=== PATIENT | male | born 1955 | race Caucasian/White ===

== ENCOUNTER 2016-07-25 13:33 | Day surgery (SDC) | payer OTHER ==
[~2016-07-25] VITALS: Ht 172.7 cm; Wt 78.1 kg
[~2016-07-25 13:33] MED LIST: ONDANSETRON HCL 4 MG/2 ML VIAL IV PUSH ONE; PROPOFOL 200 MG/20 ML AMP IV ONE
[2016-07-25] MEDS ORDERED: BUPIVACAINE HCL PF 0.5% 30 ML VIAL ONE (13:41)
[2016-07-25] MEDS ORDERED: NEOMYCIN/POLYMYXIN/BACITRACIN OINT 15 GM TUBE ONE (13:42)
[2016-07-25] MEDS ORDERED: GENTAMICIN SULFATE 80 MG/2 ML VIAL ONE (13:42)
[2016-07-25] MEDS ORDERED: EXPAREL PERI-ARTICULAR INJECTION (TOTAL VOL. 120 ML) P-ARTICULR SCH ×2 (14:00)
[2016-07-25] MEDS ORDERED: CHLORHEXIDINE GLUCONATE 4% SOLN 120 ML BTL TOP SCH (14:00)
[2016-07-25] MEDS ORDERED: POVIDONE IODINE 7.5% SCRUB 118 ML BOTTLE TOP SCH (14:00)
[2016-07-25] MEDS ORDERED: SODIUM CHLORID 0.9% 500 ML IV SCH (14:00)
[2016-07-25] MEDS ORDERED: INSULIN HUMAN REGULAR 1,000 UNITS/10 ML VIAL SQ PRN (14:00)
[2016-07-25] MEDS ORDERED: METOPROLOL TARTRATE 25 MG TAB PO PRN (14:00)
[2016-07-25] MEDS ORDERED: LACTATED RINGER'S 1000 ML IV SCH (14:00)
[2016-07-25] MEDS ORDERED: ceFAZolin 2 GM PREMIX 50 ML IV SCH (14:00)
[2016-07-25] MEDS ORDERED: PERC10TA27 PO (14:02)
[2016-07-25 14:14] VITALS: BP 142/76; PULSE 79; RESP 18; TEMP 98.5; O2SAT 97
[2016-07-25] MEDS ORDERED: MIDAZOLAM HCL 2 MG/2 ML VIAL ONE (15:42)
[2016-07-25] MEDS ORDERED: fentaNYL CITRATE 250 MCG/5 ML AMP ONE (15:42)
--- NOTE | 2016-07-25 17:39 | PD.OP ---
cc: Stuart Corcoran MD Operative Report Date of Surgery: Jul 25, 2016 Preoperative Diagnosis: Left wrist radial styloid fracture. Left radial shaft comminuted fracture. Postoperative Diagnosis: Same Procedure: Left wrist open reduction and internal fixation of radial styloid fracture. Left forearm radial shaft fracture open reduction and internal fixation. Anesthesia: Gen. Surgeon: Stuart Corcoran Retail [employer] Associate(s): EFRA Ngo The surgical procedure was assisted by my Advanced Registered Nurse Practitioner. My MANAGER CUSTOMS presence was necessary throughout this case for the manipulation and positioning of the surgical extremity. My MANAGER [employer]USTOMS was assisting me throughout the duration of this procedure. The skill set of an Advance Registered Nurse Practitioner was medically necessary to complete this procedure. During the surgical case, the assistive technology specialist was working at the back table and the Advance Registered Nurse Practitioner was directly assisting me. Operation and Findings: Tourniquet time: 54 minutes at 250 mm mercury pressure. The patient was brought to the operative theater. Gen. anesthesia was administered. The patient received intravenous Ancef. The left upper extremity was prepped and draped in the usual sterile fashion. The patient had mild to moderate swelling. No wounds were noted. We infiltrated a quarter percent Marcaine with epinephrine. The arm was exsanguinated. The tourniquet was raised. A mid standard volar incision from the wrist up to the proximal forearm. We identified the interval between the brachial radialis and the flexor carpi radialis. We identified the radial artery and reflected this ulnarly. We identified the superficial radial nerve and reflected this radially. We also protected branches of the lateral antecubital brachial cutaneous nerve as well. We reflected the pronator quadratus, flexor digitorum superficialis, and pronator teres from the radial shaft. We were then able to see that the radial styloid fracture was minimally displaced. His was reduced. Additionally in the radial shaft which was not communicating with the radial styloid fracture we identified a comminuted fracture with several pieces. We realigned these pieces anatomically and secured them with 2.7 screws placed in a countersunk fashion. This was 2 screws. We decided to move forward with fixation for the radial styloid and the radial shaft by custom bending a [employer] stainless steel metadiaphyseal plate. We applied the appropriate bend to the plate. We were then able to place the plate proximally and this was a 9 hole plate. We secured this with multiple nonlocking screws in the shaft and then we used 4 locking screws distally. The most radial 2 locking screws were able to fixate the radial styloid fragment. There was no intra-articular penetration of the screws. The patient had full range of motion of the forearm with anatomic alignment of the comminuted radial shaft and also of the radial styloid as well. Tourniquet was released. Hemostasis was achieved. The wound was closed with 2-0 Vicryl followed by rancho. The patient was placed into a sugar tong splint. Postoperative plan is for early range of motion. Stuart Corcoran MD Jul 25, 2016 17:39
[2016-07-25] MEDS ORDERED: HYDR-3366 PO (17:41)
[2016-07-25] MEDS ORDERED: SODIUM CHLORIDE 0.9% FLUSH 5 ML FLUSH IVF PRN (17:45)
[2016-07-25] MEDS ORDERED: MORPHINE SULFATE 4 MG/ML INJ IV PUSH PRN (17:45)
[2016-07-25] MEDS ORDERED: ONDANSETRON HCL 4 MG/2 ML VIAL IV PRN (17:45)
[2016-07-25] MEDS ORDERED: MORPHINE SULFATE 8 MG/ML INJ IV PUSH PRN (17:45)
[2016-07-25] MEDS ORDERED: ACETAMINOPHEN/HYDROcodone 325 MG/10 MG TAB PO PRN ×2 (18:00)
--- NOTE | 2016-07-25 18:10 | RADRPT ---
EXAM DATE/TIME: 07/25/2016 16:27 [facility] COMPARISON: No previous studies available for comparison. INDICATIONS : Surgical repair. MEDICAL HISTORY : None. SURGICAL HISTORY : None. ENCOUNTER: Initial ACUITY: 1 day PAIN SCORE: Non-responsive. LOCATION: Left forearm. FINDINGS: 5 intraoperative spot images of the left forearm. Internal fixation plate in place. Alignment near-an atomic. CONCLUSION: Intraoperative spot images of radius fracture with internal fixation hardware. Danis Carballo MD on July 25, 2016 at 18:07 Board Certified Radiologist. This report was verified electronically.
[2016-07-25] MEDS ORDERED: *morphine SULFATE 8 MG/ML PERIprocedure ONLY ONE ×3 (18:12→18:27)
[2016-07-25 19:00] VITALS: BP 149/82; PULSE 86; RESP 13; TEMP 97.9; O2SAT 95
[2016-07-25] MEDS ORDERED: DO NOT ADM ANY ANTICOAGULANT DRUGS XX PRN (19:00)
[2016-07-25] MEDS ORDERED: DICLOFENAC SODIUM 37.5 MG/ML VIAL IV PUSH ONE ×2 (19:11→19:45)
[2016-07-25] MEDS ORDERED: SODIUM CHLORIDE 0.9% FLUSH 5 ML FLUSH IVF SCH (21:00)
--- NOTE | 2016-07-27 11:51 | EKG ---
Date Performed: 07/25/2016 Time Performed: 14:26:50 PTAGE: 61 years EKG: Sinus rhythm NORMAL ECG NO PREVIOUS TRACING DOCTOR: Lester Briseno Interpretating Date/Time 07/27/2016 11:49:48
== END 2016-07-25 19:30 | disposition home or self-care (01) ==
LOC: HSDC 13:33
PROVIDERS: ATTEND Orthopaedic Surgery
DX: S52.512A Displaced fracture of left radial styloid process, initial encounter for closed fracture (principal); S52.352A Displaced comminuted fracture of shaft of radius, left arm, initial encounter for closed fracture; Z01.810 Encounter for preprocedural cardiovascular examination
CPT/HCPCS: 01830; 25515; 25607; 73090; 76000; 93005; C1713; J0690; J1130; J1580; J2250; J2270; J2405; J3010